=== PATIENT | male | born 1980 | race Two or more races ===

== ENCOUNTER 2021-01-09 12:15 | Emergency (ER) | payer SELFPAY ==
[~2021-01-09] VITALS: Ht 182.9 cm; Wt 111.0 kg
[2021-01-09] MEDS ORDERED: LIDOCAINE 1% Multi-Dose 20 ML VIAL. ONE (13:26)
[2021-01-09] MEDS ORDERED: DIPH,PERTUSS(ACELL),TET VAC/PF 0.5 ML SYRINGE. VAX IM ONE (13:30)
[2021-01-09] MEDS ORDERED: LIDOCAINE 1%/EPI 1:100,000 20 ML VIAL. INJ ONE (13:30)
--- NOTE | 2021-01-09 14:33 | PHYS DOC ---
Past Medical History Past Surgical History: No Surgical History Smoking Status: Never Smoker Alcohol Use: None General Adult EDM: Chief Complaint: LACERATION/AVULSION HPI: HPI: Patient is a 40 year old male patient presenting to the ED today with left hand laceration that occurred today prior to coming to the ED. 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 He is right-handed. Review of Systems: Review of Systems: Constitutional: Denies fever or chills. [] Musculoskeletal: Denies back pain or joint pain. [] Integument: Reports left hand laceration Neurologic: Denies headache, focal weakness or sensory changes. [] Psychiatric: Denies depression or anxiety. [] Heart Score: C/O Chest Pain: N/A Risk Factors: Risk Factors: DM, Current or recent (<one month) smoker, HTN, HLP, family history of CAD, obesity. Risk Scores: Score 0 - 3: 2.5% MACE over next 6 weeks - Discharge Home Score 4 - 6: 20.3% MACE over next 6 weeks - Admit for Clinical Observation Score 7 - 10: 72.7% MACE over next 6 weeks - Early Invasive Strategies Current Medications: Current Medications Medications (Trade) Dose Ordered Sig/Michelle Start Time Stop Time Status Last Admin Dose Admin Diphtheria/ Tetanus/Acell Pertussis (ADACEL TDap SYRINGE) 0.5 ml ONCE ONCE 01/09/21 13:30 01/09/21 13:31 DC Lidocaine HCl (Lidocaine 1% 20ml Vial) 20 ml STK-MED ONCE 01/09/21 13:26 01/09/21 13:27 DC Lidocaine/ Epinephrine (LIDOCAINE 1%-EPI 1:100,000 Multi-Dose) 20 ml 1X ONCE 01/09/21 13:30 01/09/21 13:31 DC Allergies: Allergies: Allergies Coded Allergies Type Severity Reaction Last Updated Verified No Known Drug Allergies 01/09/21 No Physical Exam: PE: Constitutional: Well developed, well nourished, no acute distress, non-toxic appearance. [] Skin: Left dorsal hand between the middle finger and ring finger knuckle with a superficial laceration approximately 2 cm long, there is no obvious tendon involvement. Full range of motion to the left fingers including flexion and extension of all the fingers. Adequate radial, median, ulnar sensation to the left hand. +2 left radial pulse. Cap refill less than 2 seconds to left fingers. Back: No tenderness, no CVA tenderness. [] Extremities: No tenderness, no cyanosis, no clubbing, ROM intact, no edema. [] Neurologic: Alert and oriented X 3, normal motor function, normal sensory function, no focal deficits noted. [] Psychologic: Affect normal, judgement normal, mood normal. [] Current Patient Data: Vital Signs: Vital Signs Date Time Temp Pulse Resp B/P (MAP) Pulse Ox O2 Delivery O2 Flow Rate FiO2 01/09/21 13:04 98.1 77 12 159/123 (135) 98 Room Air 98.1 EKG: EKG: [] Radiology/Procedures: Radiology/Procedures: Laceration/Wound Repair Wound Location: Left hand laceration Wound's Depth, Shape: Vertical Wound Length (cm): Proximately 2 cm Wound Explored: clean Irrigated w/ Saline (ccs): One hundred Betadine Prep?: Yes Anesthesia: 1% of buffered lidocaine with epinephrine Volume Anesthetic (ccs): Proximately 2 cc Wound Repaired With: Ethilon Suture Size/Type: 4.0/interrupted sutures Number of Sutures: Five Progress : Wound was covered in nonstick dressing Course & Med Decision Making: Course & Med Decision Making Pertinent Labs and Imaging studies reviewed. (See chart for details) This is a 40-year-old male patient presented to the ED today with left hand laceration that was closed by me as noted in procedures. Wound care instructions and return precautions provided. Tetanus updated in the ED. His blood pressure was 159/123 on arrival to the ED. He denies any previous history of hypertension. Denies any chest pain headache shortness of breath. He states he was very nervous when he came to the ED and has been nervous throughout the stay hence the reason the blood pressure is high. I requested the RN to redo the blood pressure and notify me. I also requested patient to start following up with the primary care doctor and also monitor his blood pressure at home and see if it continues to stay high or not. We also talked about lifestyle changes including diet and exercise. Dragon Disclaimer: Dragon Disclaimer: This electronic medical record was generated, in whole or in part, using a voice recognition dictation system. Departure Departure Impression: Primary Impression: Laceration of left hand Qualified Codes: S61.412A - Laceration without foreign body of left hand, initial encounter Additional Impression: High blood pressure Disposition: HOME / SELF CARE / HOMELESS Condition: STABLE Referrals: NO PCP (PCP) Patient Instructions: Laceration Care, Adult Additional Instructions: You have a laceration to the left hand that was closed with stitches. Keep the dressing on for 24 hours, after 24 hours remove the dressing and leave it open to air if its not bleeding or draining. You can wash your hands as needed. Keep the laceration site clean and dry. You can wash the laceration site in the next 24 hours. Please apply Neosporin to the laceration site twice a day for 7 days. Monitor the area for any signs of infection including but not limited to increased redness, warmth, yellow drainage from the area and return to the ED if they occur. Your blood pressure goals high in the emergency room 159/123. I highly encourage you to monitor your blood pressure at home daily. If it continues to be high in the next 7 days you need to follow-up with your primary care doctor. DENNYS BRICEÑO [employer] Jan 09, 2021 14:33
[2021-01-09 14:51] VITALS: BP 132/73
== END 2021-01-09 15:00 | disposition home or self-care (01) ==
LOC: ER 12:15
DX: S61.412A Laceration without foreign body of left hand, initial encounter (principal); Y28.8XXA Contact with other sharp object, undetermined intent, initial encounter; Y93.89 Activity, other specified; Y92.89 Other specified places as the place of occurrence of the external cause; Y99.8 Other external cause status
CPT/HCPCS: 12001; 90471; 90715; 99283; J3490